=== PATIENT | female | born 1990 | race African-American/Black ===

== ENCOUNTER 2019-09-22 16:26 | Emergency (ER) | payer MEDICAID ==
[~2019-09-22] VITALS: Ht 160 cm; Wt 55.0 kg
[2019-09-22] MEDS ORDERED: KETOROLAC 60MG/2ML VIAL IM ONE (22:45)
[2019-09-22] MEDS ORDERED: MAGNESIUM/ALUMINUM HYDROXIDE/SIMETHICONE 30ML UDC PO ONE (22:45)
[2019-09-22] MEDS ORDERED: VISCOUS LIDOCAINE 2% 15 ML UDC PO ONE (22:45)
[2019-09-22] MEDS ORDERED: MORPHINE SULFATE 10 MG/ML CPJ IM ONE (23:45)
[2019-09-23 01:00] VITALS: BP 115/68
== END 2019-09-23 01:00 | disposition home or self-care (01) ==
LOC: ER 16:26
DX: R05 Cough (principal); R07.81 Pleurodynia; F20.9 Schizophrenia, unspecified
CPT/HCPCS: 96372; 99283; J1885; J2270